=== PATIENT | male | born 1945 ===

== ENCOUNTER 2019-11-22 05:35 | Day surgery (SDC) | payer OTHER ==
[~2019-11-22 05:35] MED LIST: BUDEO.25 IH; CITALOPRAM HBR20 MG PO; COZAAR100 MG PO; HYDROCHLOROTHIA25 MG PO; LOVASTATIN40 MG PO; METFORMIN HCL1000 M2 PO; PROAIR HFA8.5 GM IH; PROTONIX40 MG PO; QUETIAPINE FUM400 M1 PO; TOPROL XL50 M1 PO; TYLENOL325 MG PO
== END 2019-11-22 11:50 | disposition home or self-care (01) ==
LOC: CIR.AMB 05:35 → EDSEX 05:35 → CIR.AMB 08:30
PROVIDERS: ATTEND Urology
DX: N47.1 Phimosis (principal)